=== PATIENT | male | born 1995 | race African-American/Black ===

== ENCOUNTER 2016-11-12 00:17 | Emergency (ER) | payer SELFPAY ==
[~2016-11-12] VITALS: Ht 170.2 cm; Wt 69.0 kg
[2016-11-12] MEDS ORDERED: SODIUM CHLORIDE 0.9% 1,000 ML IV ONE (03:15)
[2016-11-12] MEDS ORDERED: ONDANSETRON HCL 4MG/2ML VIAL IV ONE (03:15)
[2016-11-12 05:30] VITALS: BP 120/75
== END 2016-11-12 06:27 | disposition home or self-care (01) ==
LOC: ER 00:20
DX: F11.23 Opioid dependence with withdrawal (principal)
CPT/HCPCS: 96361; 96374; 99285; J2405; J7030; Z7610

== ENCOUNTER 2016-12-26 00:22 | Emergency (ER) | payer SELFPAY ==
[~2016-12-26] VITALS: Ht 177.8 cm; Wt 68.0 kg
[2016-12-26 00:25] VITALS: BP 137/88
== END 2016-12-26 03:55 | disposition left against medical advice (07) ==
LOC: ER 00:27
DX: F10.129 Alcohol abuse with intoxication, unspecified (principal); Z53.21 Procedure and treatment not carried out due to patient leaving prior to being seen by health care provider